=== PATIENT | female | born 1970 | race Hispanic/Latino ===

== ENCOUNTER 2018-12-09 16:44 | Inpatient (IN) | payer BC ==
[2018-12-09 17:07] LABS: Basophils # (Auto) 0.1 K/mm3 (0.0-0.1); Basophils % (Auto) 0.6 % (0.0-1.8); Eosinophils # (Auto) 0.1 K/mm3 (0.0-0.4); Eosinophils % (Auto) 1.5 % (0.0-4.3); Hematocrit 45.9 % (30.3-42.9); Hemoglobin 15.9 gm/dl (10.1-14.3); Lymphocytes # (Auto) 2.8 K/mm3 (1.2-5.4); Lymphocytes % (Auto) 33.6 % (13.4-35.0); Mean Corpuscular HGB Conc 35 % (30-34); Mean Corpuscular Volume 87 fl (79-97); Monocytes # (Auto) 0.6 K/mm3 (0.0-0.8); Monocytes % (Auto) 7.6 % (0.0-7.3); Platelet Count 244 K/mm3 (140-440); Red Cell Distribution Width 13.1 % (13.2-15.2)
--- NOTE | 2018-12-09 17:13 | Cat Scan Report ---
FINAL REPORT PROCEDURE: CT head without contrast. TECHNIQUE: Computerized tomography of the head was performed without contrast material. HISTORY: NEURO DEFICIT COMPARISON: No prior studies are available for comparison. FINDINGS: The ventricles are normal in size. The reid matter and white matter appear normal. There are no mass lesions. There is no intracranial hemorrhage. The calvarium appears intact. The mastoid air cells and visualized paranasal sinuses are well aerated. IMPRESSION: Normal study.
[2018-12-09 17:19] LABS: BUN/Creatinine Ratio 17; Blood Urea Nitrogen 10 mg/dL (7-17); Calcium 9.3 mg/dL (8.4-10.2); Hemolysis Index 11
[2018-12-09 17:20] LABS: INR 0.94 (0.87-1.13)
--- NOTE | 2018-12-09 17:30 | Emergency Department Report ---
ED Neuro Deficit HPI - General Chief Complaint: Weakness Stated Complaint: RIDE SIDE NUMB Time Seen by Provider: 12/09/18 17:22 Source: patient Mode of arrival: Ambulatory Limitations: No Limitations - History of Present Illness Initial Comments: Patient is a 48-year-old female that presents emergency room with complaints of right-sided numbness. Patient states is mostly in her right arm. Patient states his symptoms started one hour ago. Last known well time one hour ago. Patient states history of uncontrolled diabetes and TIA. She also states she is not compliant with all of her medications or insulin. Patient denies chest pain shortness of breath. Patient denies inability to move her limbs. Patient denies changes in her face. Patient denies dizziness. Patient denies headache. Patient denies blurry vision. Patient states she also has medications for high blood pressure. -: Sudden Location: right arm History of same: No Place: home Severity: mild, moderate Quality: numb Improves With: none Worsens With: none On Anticoagulants: No Context: sudden onset Associated Symptoms: denies other symptoms. denies: confusion, chest pain, cough, diaphoresis, fever/chills, headaches, loss of appetite, malise, nausea/vomiting, vertigo, seizures, shortness of breath, syncope, weakness Treatments Prior to Arrival: none - Related Data Home Medications: Home Medications Medication Instructions Recorded Confirmed Last Taken Detemir (Nf) [Levemir (Nf)] 55 units SUB-Q QHS 12/09/18 12/09/18 Unknown metFORMIN [Glucophage] 850 mg PO BID 12/09/18 12/09/18 Unknown Allergies/Adverse Reactions: Allergies Allergy/AdvReac Type Severity Reaction Status Date / Time naproxen [From Naprosyn] Allergy Swelling Verified 12/09/18 16:45 ED Review of Systems ROS: Stated complaint: RIDE SIDE NUMB Other details as noted in HPI Constitutional: denies: chills, fever Eyes: denies: eye pain, eye discharge, vision change ENT: denies: ear pain, throat pain Respiratory: denies: cough, shortness of breath, wheezing Cardiovascular: denies: chest pain, palpitations Endocrine: no symptoms reported Gastrointestinal: denies: abdominal pain, nausea, diarrhea Genitourinary: denies: urgency, dysuria, discharge Musculoskeletal: denies: back pain, joint swelling, arthralgia Skin: denies: rash, lesions Neurological: numbness. denies: headache, weakness Psychiatric: denies: anxiety, depression Hematological/Lymphatic: denies: easy bleeding, easy bruising ED Past Medical Hx - Past Medical History Previous Medical History?: Yes Hx Hypertension: Yes Hx Diabetes: Yes Additional medical history: TIA - Surgical History Past Surgical History?: No - Family History Family history: no significant - Social History Smoking Status: Never Smoker Substance Use Type: Alcohol - Medications Home Medications: Home Medications Medication Instructions Recorded Confirmed Last Taken Type Detemir (Nf) [Levemir (Nf)] 55 units SUB-Q QHS 12/09/18 12/09/18 Unknown History metFORMIN [Glucophage] 850 mg PO BID 12/09/18 12/09/18 Unknown History ED Neuro Physical Exam - General Limitations: No Limitations General appearance: alert, in no apparent distress Suspected Stroke: No - Head Head exam: Present: atraumatic, normocephalic - Eye Eye exam: Present: normal appearance, PERRL Pupils: Present: normal accommodation - ENT ENT exam: Present: mucous membranes moist - Neck Neck exam: Present: normal inspection - Respiratory Respiratory exam: Present: normal lung sounds bilaterally. Absent: respiratory distress - Cardiovascular Cardiovascular Exam: Present: regular rate, normal rhythm. Absent: systolic murmur, diastolic murmur, rubs, gallop - GI/Abdominal GI/Abdominal exam: Present: soft, normal bowel sounds - Extremities Exam Extremities exam: Present: normal inspection - Back Exam Back exam: Present: normal inspection - Neurological Exam Neurological exam: Present: alert, oriented X3 - NIHSS Assessment Interval: Baseline 1a. Level of Consciousness: alert/keenly responsive 1b. LOC Questions: answers both correctly 1c. LOC Commands: performs tasks correctly 2. Best Gaze: normal 3. Visual: no visual loss 4. Facial Palsy: normal symmetrical movement 5b. Motor Arm Right: no drift 5a. Motor Arm Left: no drift 6a. Motor Leg Left: no drift 6b. Motor Leg Right: no drift 7. Limb Ataxia: absent 8. Sensory: mild/moderate sensory loss 9. Best Language: no aphasia 10. Dysarthria: normal 11. Extinction/Inattention: no abnormality Total Score: 1 Stroke Severity: Minor Stroke - Psychiatric Psychiatric exam: Present: normal affect, normal mood - Skin Skin exam: Present: warm, dry, intact, normal color. Absent: rash ED Course Vital Signs 12/09/18 12/09/18 12/09/18 16:49 17:08 17:15 Temperature 99.2 F Pulse Rate 117 H 113 H 104 H Respiratory 18 16 19 Rate Blood Pressure 185/101 O2 Sat by Pulse 98 99 Oximetry 12/09/18 12/09/18 12/09/18 17:31 17:45 18:00 Temperature Pulse Rate 105 H 100 H 103 H Respiratory 24 21 17 Rate Blood Pressure 166/91 173/84 O2 Sat by Pulse 99 99 99 Oximetry 12/09/18 12/09/18 12/09/18 18:15 18:31 18:43 Temperature Pulse Rate 84 Respiratory Rate Blood Pressure 173/84 173/84 162/85 O2 Sat by Pulse 98 98 Oximetry 12/09/18 12/09/18 12/09/18 18:45 19:01 19:15 Temperature Pulse Rate 84 82 82 Respiratory 12 14 13 Rate Blood Pressure 162/82 173/84 173/84 O2 Sat by Pulse 98 99 98 Oximetry 12/09/18 12/09/18 12/09/18 19:31 21:01 21:53 Temperature 97.7 F Pulse Rate 85 Respiratory 22 14 Rate Blood Pressure 173/84 149/76 131/76 O2 Sat by Pulse 98 100 Oximetry 12/09/18 22:00 Temperature Pulse Rate 84 Respiratory Rate Blood Pressure O2 Sat by Pulse Oximetry - Reevaluation(s) Reevaluation #1: Discussed all results with patient. Discussed plan of care and admission with patient. Patient to be admitted to the hospitalist service. Patient agrees with plan of care. 12/09/18 17:51 - Consultations Consultation #1: Discussed case with neurologist. Neurologist to see patient. 12/09/18 17:28 Dr gil saw patient. Dr. Muller's findings consistent with mild but does not recommend TPA. Patient does not want TPA. Dr. Muller recommends admission for further stroke evaluation and management of diabetes. 12/09/18 17:42 Consultation #2: Hospitalist consulted for admission. Hospitalist to admit patient and assume care of patient. Bridge orders were placed. 12/09/18 18:03 - Lab Data Result diagrams: 12/09/18 16:56 12/09/18 16:56 Lab Results 12/09/18 12/09/18 12/09/18 Range/Units 16:52 16:56 16:56 WBC 8.3 (4.5-11.0) K/mm3 RBC 5.30 H (3.65-5.03) M/mm3 Hgb 15.9 H (10.1-14.3) gm/dl Hct 45.9 H (30.3-42.9) % MCV 87 (79-97) fl MCH 30 (28-32) pg MCHC 35 H (30-34) % RDW 13.1 L (13.2-15.2) % Plt Count 244 (140-440) K/mm3 Lymph % (Auto) 33.6 (13.4-35.0) % [place] % (Auto) 7.6 H (0.0-7.3) % Eos % (Auto) 1.5 (0.0-4.3) % Baso % (Auto) 0.6 (0.0-1.8) % Lymph # 2.8 (1.2-5.4) K/mm3 [place] # 0.6 (0.0-0.8) K/mm3 Eos # 0.1 (0.0-0.4) K/mm3 Baso # 0.1 (0.0-0.1) K/mm3 Seg Neutrophils % 56.7 (40.0-70.0) % Seg Neutrophils # 4.7 (1.8-7.7) K/mm3 PT 13.0 (12.2-14.9) Sec. INR 0.94 (0.87-1.13) APTT 24.0 L (24.2-36.6) Sec. Thrombin Time (15.1-19.6) Sec. VBG pH (7.320-7.420) Sodium (137-145) mmol/L Potassium (3.6-5.0) mmol/L Chloride (98-107) mmol/L Carbon Dioxide (22-30) mmol/L Anion Gap mmol/L BUN (7-17) mg/dL Creatinine (0.7-1.2) mg/dL Estimated GFR ml/min BUN/Creatinine Ratio % Glucose (65-100) mg/dL POC Glucose 456 H (70-105) Calcium (8.4-10.2) mg/dL Troponin T (0.00-0.029) ng/mL 12/09/18 12/09/18 12/09/18 Range/Units 16:56 16:56 16:56 WBC (4.5-11.0) K/mm3 RBC (3.65-5.03) M/mm3 Hgb (10.1-14.3) gm/dl Hct (30.3-42.9) % MCV (79-97) fl MCH (28-32) pg MCHC (30-34) % RDW (13.2-15.2) % Plt Count (140-440) K/mm3 Lymph % (Auto) (13.4-35.0) % [place] % (Auto) (0.0-7.3) % Eos % (Auto) (0.0-4.3) % Baso % (Auto) (0.0-1.8) % Lymph # (1.2-5.4) K/mm3 [place] # (0.0-0.8) K/mm3 Eos # (0.0-0.4) K/mm3 Baso # (0.0-0.1) K/mm3 Seg Neutrophils % (40.0-70.0) % Seg Neutrophils # (1.8-7.7) K/mm3 PT (12.2-14.9) Sec. INR (0.87-1.13) APTT (24.2-36.6) Sec. Thrombin Time 17.6 (15.1-19.6) Sec. VBG pH 7.395 (7.320-7.420) Sodium 135 L (137-145) mmol/L Potassium 4.1 (3.6-5.0) mmol/L Chloride 97.6 L (98-107) mmol/L Carbon Dioxide 21 L (22-30) mmol/L Anion Gap 21 mmol/L BUN 10 (7-17) mg/dL Creatinine 0.6 L (0.7-1.2) mg/dL Estimated GFR > 60 ml/min BUN/Creatinine Ratio 17 % Glucose 482 H (65-100) mg/dL POC Glucose (70-105) Calcium 9.3 (8.4-10.2) mg/dL Troponin T < 0.010 (0.00-0.029) ng/mL - EKG Data -: EKG Interpreted by Tn EKG shows normal: sinus rhythm, axis, intervals, QRS complexes, ST-T waves Rate: tachycardia - Radiology Data Radiology results: report reviewed Radiologist called with negative CT of the head - Medical Decision Making Patient is a 48-year-old female that presents to emergency room with right sided numbness which includes right base right arm right leg however the right arm w orse. Patient's NIH is 1. Patient's labs unremarkable except for hyperglycemia and hypoglycemia sequela. EKG is negative. Patient spell pressure elevated. Patient given Lopressor 2.5. Patient also given a saline bolus. Patient stated she is noncompliant with her diabetes medication. Neurologist saw patient and states that this is a mild CVA. Neurologist recommends admission for hyperglyce dede and diabetes management as well as further stroke workup. - Differential Diagnosis CVA. Neuropathy. Electrolyte imbalance. Hyperglycemia. - Core Measures AMI Core Measures Followed: Yes Critical Care Time: Yes Critical care attestation.: If time is entered above; I have spent that time in minutes in the direct care of this critically ill patient, excluding procedure time. Critical Care Time: 45 minutes ED Disposition Clinical Impression: Hyperglycemia, Right arm numbness Diabetes Qualifiers: Diabetes mellitus type: type 2 Diabetes mellitus moth exterminator insulin use: with fpc use Diabetes mellitus complication status: with unspecified complications Qualified Code(s): E11.8 - Type 2 diabetes mellitus with unspecified complications CVA (cerebral vascular accident) Qualifiers: CVA mechanism: unspecified Qualified Code(s): I63.9 - Cerebral infarction, unspecified Disposition: DC-09 OP ADMIT IP TO THIS HOSP Is pt being admited?: Yes Does the pt Need Aspirin: No Condition: Critical Time of Disposition: 17:58
[2018-12-09] MEDS ORDERED: NACL 0.9% 1000 ML 1,000 ML IV ONE (17:56)
[2018-12-09] MEDS ORDERED: LOPRESSOR IV ONE (17:57)
[2018-12-09] MEDS ORDERED: ZOFRAN IV PRN (20:43)
[2018-12-09] MEDS ORDERED: SODIUM CHLORIDE FLUSH SYRINGE 10 ML IV PRN ×2 (20:43→20:46)
[2018-12-09] MEDS ORDERED: TYLENOL PO PRN (20:43)
[2018-12-09] MEDS ORDERED: REGLAN PO PRN (20:46)
[2018-12-09] MEDS ORDERED: MILK OF MAGNESIA PO PRN (20:46)
[2018-12-09] MEDS ORDERED: DULCOLAX PR PRN (20:46)
[2018-12-09] MEDS ORDERED: PHENERGAN PR PRN (20:46)
[2018-12-09 21:19] LABS: Bilirubin,Urine NEG (Negative); Blood,Urine NEG (Negative); Color,Urine Yellow (Yellow); Protein,Urine <15 mg/dL mg/dL (Negative); Urobilinogen,Urine < 2.0 mg/dL (<2.0)
[2018-12-09] MEDS ORDERED: HumuLIN R SUB-Q ONE (21:35)
[2018-12-09] MEDS ORDERED: HumuLIN R ONE (21:45)
--- NOTE | 2018-12-09 22:29 | History and Physical Report ---
<BARON THAKKAR - Last Filed: 12/10/18 00:38> History of Present Illness Date of examination: 12/09/18 Date of admission: 12/09/18 18:44 Chief complaint: Numbness and weakness on the right side History of present illness: Pt is a 48-year-old female WF with PMHx of TIA, obesity, uncontrolled DM type 2, breast ca, HTN who presents to the ER with complaints of right-sided numbness. Patient states that the symptoms started one hour prior to arrival to the ER and gradually improved when she got to the ER. Pt admits to prior prior episode of TIA, she was seen by neurologist who suggested hospital admission with MRI to follow up her neuro symptoms. Pt's Blood glucose was elevated in the ER "482", pt admits not to take her insulin, even though she checked her blood glucose and it's elevated, she does't take insulin because "insulin is too expensive". Patient denies LOC, denies visual changes, denies extremities weakness, denies dizziness, denies headache, denies chest pain, denies SOB. Pt is admitted, MRI of the brain is ordered, to follow up CT scan. Past History Past Medical History: cancer Past Surgical History: hysterectomy Social history: lives with family Family history: no significant family history Medications and Allergies Allergies Allergy/AdvReac Type Severity Reaction Status Date / Time naproxen [From Naprosyn] Allergy Swelling Verified 12/09/18 16:45 Home Medications Medication Instructions Recorded Confirmed Last Taken Type Detemir (Nf) [Levemir (Nf)] 55 units SUB-Q QHS 12/09/18 12/09/18 Unknown History metFORMIN [Glucophage] 850 mg PO BID 12/09/18 12/09/18 Unknown History Active Meds: Active Medications Acetaminophen (Tylenol) 650 mg PO Q4H PRN PRN Reason: Pain MILD(1-3)/Fever >100.5/[place] Acetaminophen (Tylenol) 650 mg PO Q4H PRN PRN Reason: Pain, Mild (1-3) Bisacodyl (Dulcolax) 10 mg MT QDAY PRN PRN Reason: Constipation Insulin Glargine (Lantus) 25 units SUB-Q QHS JOHN Insulin Human Regular (Humulin R) 0 units SUB-Q ACHS JOHN; Protocol Magnesium Hydroxide (Milk Of Magnesia) 30 ml PO Q4H PRN PRN Reason: Constipation Metformin HCl (Glucophage) 850 mg PO BID JOHN Metoclopramide HCl (Reglan) 10 mg PO Q6H PRN PRN Reason: Nausea And Vomiting Ondansetron HCl (Zofran) 4 mg IV Q8H PRN PRN Reason: Nausea And Vomiting Promethazine HCl (Phenergan) 25 mg MT Q6H PRN PRN Reason: Nausea And Vomiting Sodium Chloride (Sodium Chloride Flush Syringe 10 Ml) 10 ml IV BID JOHN Sodium Chloride (Sodium Chloride Flush Syringe 10 Ml) 10 ml IV PRN PRN PRN Reason: LINE FLUSH Sodium Chloride (Sodium Chloride Flush Syringe 10 Ml) 10 ml IV PRN PRN PRN Reason: LINE FLUSH Exam - Constitutional Vitals: Temp Pulse Resp BP Pulse Ox 97.7 F 85 14 131/76 100 12/09/18 21:53 12/09/18 21:53 12/09/18 21:01 12/09/18 21:53 12/09/18 21:53 - EENT Eyes: Present: PERRL ENT: hearing intact - Neck Neck: Present: supple - Respiratory Respiratory effort: normal Respiratory: negative: CTA - Cardiovascular Rhythm: regular - Extremities Extremities: no ischemia, No edema Peripheral Pulses: within normal limits - Abdominal General gastrointestinal: Present: soft, non-tender Female genitourinary: Present: deferred - Rectal Rectal Exam: deferred - Integumentary Integumentary: Present: warm, dry - Musculoskeletal Musculoskeletal: generalized weakness - Psychiatric Psychiatric: cooperative - Neurologic Neurologic: moves all extremities Results - Labs CBC & Chem 7: 12/09/18 16:56 12/09/18 16:56 Labs: Laboratory Last Values WBC 8.3 K/mm3 (4.5-11.0) 12/09/18 16:56 RBC 5.30 M/mm3 (3.65-5.03) H 12/09/18 16:56 Hgb 15.9 gm/dl (10.1-14.3) H 12/09/18 16:56 Hct 45.9 % (30.3-42.9) H 12/09/18 16:56 MCV 87 fl (79-97) 12/09/18 16:56 MCH 30 pg (28-32) 12/09/18 16:56 MCHC 35 % (30-34) H 12/09/18 16:56 RDW 13.1 % (13.2-15.2) L 12/09/18 16:56 Plt Count 244 K/mm3 (140-440) 12/09/18 16:56 Lymph % (Auto) 33.6 % (13.4-35.0) 12/09/18 16:56 [place] % (Auto) 7.6 % (0.0-7.3) H 12/09/18 16:56 Eos % (Auto) 1.5 % (0.0-4.3) 12/09/18 16:56 Baso % (Auto) 0.6 % (0.0-1.8) 12/09/18 16:56 Lymph # 2.8 K/mm3 (1.2-5.4) 12/09/18 16:56 [place] # 0.6 K/mm3 (0.0-0.8) 12/09/18 16:56 Eos # 0.1 K/mm3 (0.0-0.4) 12/09/18 16:56 Baso # 0.1 K/mm3 (0.0-0.1) 12/09/18 16:56 Seg Neutrophils % 56.7 % (40.0-70.0) 12/09/18 16:56 Seg Neutrophils # 4.7 K/mm3 (1.8-7.7) 12/09/18 16:56 PT 13.0 Sec. (12.2-14.9) 12/09/18 16:56 INR 0.94 (0.87-1.13) 12/09/18 16:56 APTT 24.0 Sec. (24.2-36.6) L 12/09/18 16:56 Thrombin Time 17.6 Sec. (15.1-19.6) 12/09/18 16:56 VBG pH 7.395 (7.320-7.420) 12/09/18 16:56 Sodium 135 mmol/L (137-145) L 12/09/18 16:56 Potassium 4.1 mmol/L (3.6-5.0) 12/09/18 16:56 Chloride 97.6 mmol/L (98-107) L 12/09/18 16:56 Carbon Dioxide 21 mmol/L (22-30) L 12/09/18 16:56 Anion Gap 21 mmol/L 12/09/18 16:56 BUN 10 mg/dL (7-17) 12/09/18 16:56 Creatinine 0.6 mg/dL (0.7-1.2) L 12/09/18 16:56 Estimated GFR > 60 ml/min 12/09/18 16:56 BUN/Creatinine Ratio 17 % 12/09/18 16:56 Glucose 482 mg/dL (65-100) H 12/09/18 16:56 POC Glucose 356 (70-105) H 12/09/18 20:56 Calcium 9.3 mg/dL (8.4-10.2) 12/09/18 16:56 Troponin T < 0.010 ng/mL (0.00-0.029) 12/09/18 16:56 Urine Color Yellow (Yellow) 12/09/18 21:00 Urine Turbidity Clear (Clear) 12/09/18 21:00 Urine pH 5.0 (5.0-7.0) 12/09/18 21:00 Ur Specific [place] 1.033 (1.003-1.030) H 12/09/18 21:00 Urine Protein <15 mg/dl mg/dL (Negative) 12/09/18 21:00 Urine Glucose (UA) >=500 mg/dL (Negative) 12/09/18 21:00 Urine Ketones Neg mg/dL (Negative) 12/09/18 21:00 Urine Blood Neg (Negative) 12/09/18 21:00 Urine Nitrite Neg (Negative) 12/09/18 21:00 Urine Bilirubin Neg (Negative) 12/09/18 21:00 Urine Urobilinogen < 2.0 mg/dL (<2.0) 12/09/18 21:00 Ur Leukocyte Esterase Neg (Negative) 12/09/18 21:00 Urine WBC (Auto) 2.0 /HPF (0.0-6.0) 12/09/18 21:00 Urine RBC (Auto) 2.0 /HPF (0.0-6.0) 12/09/18 21:00 U Epithel Cells (Auto) 1.0 /HPF (0-13.0) 12/09/18 21:00 Assessment and Plan Assessment and plan: 1. TIA r/o CVA 2. Uncontrolled DM type 2 3. h/o Breast ca 4. HTN 5. Obesity Plan: [facility] brain to r/o CVA MRA of the brain and neck Neuro check q4hr Monitor VS Bedside swallow study Accu check ACHS with insulin per sliding scale DVT prophylaxis with sequential device Resume home meds Further plan per hospital course Plan d/w pt and family in room, voiced understanding Pt's condition and plan of care d/w Dr Dailey Advance Directives: Yes VTE prophylaxis?: Chemical Contraindication Mechanical VTE Prophylaxis: Contraindicated Plan of care discussed with patient/family: Yes <ALENA DAILEY - Last Filed: 12/10/18 01:27> History of Present Illness Date of admission: 12/09/18 18:44 Medications and Allergies Active Meds: Active Medications Acetaminophen (Tylenol) 650 mg PO Q4H PRN PRN Reason: Pain, Mild (1-3) Atorvastatin Calcium (Lipitor) 20 mg PO QHS [facility] Bisacodyl (Dulcolax) 10 mg MT QDAY PRN PRN Reason: Constipation Clopidogrel Bisulfate (Plavix) 75 mg PO QDAY [facility] Insulin Glargine (Lantus) 25 units SUB-Q QHS [facility] Insulin Human Regular (Humulin R) 0 units SUB-Q ACHS [facility]; Protocol Last Admin: 12/10/18 00:44 Dose: 10 units Documented by: Magnesium Hydroxide (Milk Of Magnesia) 30 ml PO Q4H PRN PRN Reason: Constipation Metformin HCl (Glucophage) 850 mg PO BIDDIAB [facility] Metoclopramide HCl (Reglan) 10 mg PO Q6H PRN PRN Reason: Nausea And Vomiting Ondansetron HCl (Zofran) 4 mg IV Q8H PRN PRN Reason: Nausea And Vomiting Sodium Chloride (Sodium Chloride Flush Syringe 10 Ml) 10 ml IV BID [facility] Last Admin: 12/09/18 23:05 Dose: 10 ml Documented by: Sodium Chloride (Sodium Chloride Flush Syringe 10 Ml) 10 ml IV PRN PRN PRN Reason: LINE FLUSH Sodium Chloride (Sodium Chloride Flush Syringe 10 Ml) 10 ml IV PRN PRN PRN Reason: LINE FLUSH Exam - Constitutional Vitals: Temp Pulse Resp BP Pulse Ox 97.7 F 84 17 152/73 97 12/09/18 23:45 12/09/18 23:45 12/09/18 23:45 12/09/18 23:45 12/09/18 23:45 Results - Labs CBC & Chem 7: 12/09/18 16:56 12/09/18 16:56 Labs: Laboratory Last Values WBC 8.3 K/mm3 (4.5-11.0) 12/09/18 16:56 RBC 5.30 M/mm3 (3.65-5.03) H 12/09/18 16:56 Hgb 15.9 gm/dl (10.1-14.3) H 12/09/18 16:56 Hct 45.9 % (30.3-42.9) H 12/09/18 16:56 MCV 87 fl (79-97) 12/09/18 16:56 MCH 30 pg (28-32) 12/09/18 16:56 MCHC 35 % (30-34) H 12/09/18 16:56 RDW 13.1 % (13.2-15.2) L 12/09/18 16:56 Plt Count 244 K/mm3 (140-440) 12/09/18 16:56 Lymph % (Auto) 33.6 % (13.4-35.0) 12/09/18 16:56 [place] % (Auto) 7.6 % (0.0-7.3) H 12/09/18 16:56 Eos % (Auto) 1.5 % (0.0-4.3) 12/09/18 16:56 Baso % (Auto) 0.6 % (0.0-1.8) 12/09/18 16:56 Lymph # 2.8 K/mm3 (1.2-5.4) 12/09/18 16:56 [place] # 0.6 K/mm3 (0.0-0.8) 12/09/18 16:56 Eos # 0.1 K/mm3 (0.0-0.4) 12/09/18 16:56 Baso # 0.1 K/mm3 (0.0-0.1) 12/09/18 16:56 Seg Neutrophils % 56.7 % (40.0-70.0) 12/09/18 16:56 Seg Neutrophils # 4.7 K/mm3 (1.8-7.7) 12/09/18 16:56 PT 13.0 Sec. (12.2-14.9) 12/09/18 16:56 INR 0.94 (0.87-1.13) 12/09/18 16:56 APTT 24.0 Sec. (24.2-36.6) L 12/09/18 16:56 Thrombin Time 17.6 Sec. (15.1-19.6) 12/09/18 16:56 VBG pH 7.395 (7.320-7.420) 12/09/18 16:56 Sodium 135 mmol/L (137-145) L 12/09/18 16:56 Potassium 4.1 mmol/L (3.6-5.0) 12/09/18 16:56 Chloride 97.6 mmol/L (98-107) L 12/09/18 16:56 Carbon Dioxide 21 mmol/L (22-30) L 12/09/18 16:56 Anion Gap 21 mmol/L 12/09/18 16:56 BUN 10 mg/dL (7-17) 12/09/18 16:56 Creatinine 0.6 mg/dL (0.7-1.2) L 12/09/18 16:56 Estimated GFR > 60 ml/min 12/09/18 16:56 BUN/Creatinine Ratio 17 % 12/09/18 16:56 Glucose 482 mg/dL (65-100) H 12/09/18 16:56 POC Glucose 367 (70-105) H 12/09/18 23:50 Calcium 9.3 mg/dL (8.4-10.2) 12/09/18 16:56 Troponin T < 0.010 ng/mL (0.00-0.029) 12/09/18 16:56 Urine Color Yellow (Yellow) 12/09/18 21:00 Urine Turbidity Clear (Clear) 12/09/18 21:00 Urine pH 5.0 (5.0-7.0) 12/09/18 21:00 Ur Specific [place] 1.033 (1.003-1.030) H 12/09/18 21:00 Urine Protein <15 mg/dl mg/dL (Negative) 12/09/18 21:00 Urine Glucose (UA) >=500 mg/dL (Negative) 12/09/18 21:00 Urine Ketones Neg mg/dL (Negative) 12/09/18 21:00 Urine Blood Neg (Negative) 12/09/18 21:00 Urine Nitrite Neg (Negative) 12/09/18 21:00 Urine Bilirubin Neg (Negative) 12/09/18 21:00 Urine Urobilinogen < 2.0 mg/dL (<2.0) 12/09/18 21:00 Ur Leukocyte Esterase Neg (Negative) 12/09/18 21:00 Urine WBC (Auto) 2.0 /HPF (0.0-6.0) 12/09/18 21:00 Urine RBC (Auto) 2.0 /HPF (0.0-6.0) 12/09/18 21:00 U Epithel Cells (Auto) 1.0 /HPF (0-13.0) 12/09/18 21:00 Assessment and Plan Assessment and plan: This is a 48-year-old woman with a history of hypertension, uncontrolled diabetes, TIA, breast cancer, noncompliance discussed emergency room complaining of right sided numbness, also her right hand feels weak. Her symptoms have improved and they are now back to baseline. The patient has not taken aspirin in over one year, she also tried to stretch her dinner insulin so it can last longer. Physical exam is benign. Agree with plan as stated above, in addition check echo, consult neurology, start plavix, statin Review of systems Constitutional: no weight loss, chills, fever Ears, eyes, nose, mouth and throat: no nasal congestion, no nasal discharge, no sinus pressure, no vision change, no red eye. Neck: No neck pain or rigidity. Cardiovascular: no palpitations, chest pain Respiratory: no cough, shortness of breath Gastrointestinal: no hematochezia, abdominal pain Genitourinary : no frequency , no hematuria Musculoskeletal: no joint swelling or muscle ache Integumentary: no rash, no pruritis Neurological: no pno focal weakness Endocrine: no cold or heat intolerance, no polyuria or polydipsia Hematologic/Lymphatic: no easy bruising, no easy bleeding, no gland swelling Allergic/Immunologic: no urticaria, no angioedema.
[2018-12-09] MEDS: SODIUM CHLORIDE FLUSH SYRINGE 10 ML IV SCH (23:05)
[2018-12-10] MEDS: HumuLIN R SUB-Q SCH ×5 (00:44→22:27)
[2018-12-10 05:46] LABS: Chol/HDL Ratio 5.86 %
[2018-12-10] MEDS: TYLENOL PO PRN ×2 (05:46→20:36)
--- NOTE | 2018-12-10 10:49 | Magnetic Resonance Report ---
MRI BRAIN WITHOUT CONTRAST: 12/10/18 CLINICAL: Stroke. TECHNIQUE: Axial diffusion, T1, T2, gradient echo T2*, coronal and axial FLAIR and sagittal T1 sequences on a 1.5 Isabel magnet. FINDINGS: The ventricles and sulci are normal for age. A single tiny focus of restricted diffusion in the left thalamus. No other restricted diffusion. Mild bilateral multifocal subcortical white matter hyperintensities on FLAIR and T2. A small chronic lacunar infarct of the left midbrain. No other abnormal signal. No mass or mass effect. No hemorrhage, edema or extra-axial collection. No cerebral microbleeds on the gradient echo sequence. Normal pituitary and optic chiasm. The brainstem and cerebellum are normal. Intact vascular flow voids. Normal sinuses. The orbits, and soft tissues are normal. Normal calvarium and skull base. IMPRESSION: 1. A single tiny nonhemorrhagic acute/subacute infarct of the left thalamus. 2. A chronic small lacunar infarct of the left midbrain. 3. Mild bilateral chronic white matter microangiopathy.
[2018-12-10] MEDS: GLUCOPHAGE PO SCH ×2 (11:49→17:28)
[2018-12-10] MEDS: PLAVIX PO SCH (11:49)
--- NOTE | 2018-12-10 11:51 | Progress Note ---
Assessment and Plan Acute/subacute left thalamic CVA Uncontrolled DM type 2, a1c 10.9 h/o Breast ca HTN, stable Obesity - Pt is admitted to [facility] Neuro check q4hr , Monitor VS resumed diet after Bedside swallow study Accu check ACHS with insulin per sliding scale DVT prophylaxis with sequential device Resumed home meds, started on aspirin and plavix consulted neurology, follow 2d echo Brief History: This is a 48-year-old woman with a history of hypertension, uncontrolled diabetes, TIA, breast cancer, noncompliance presented to the emergency room complaining of right sided numbness, and her right hand feeling weak. The pa patricia has not taken aspirin in over one year, she also tried to stretch her dinner insulin so it can last longer. check echo, consulted neurology, started aspirin, plavix, statin Radiological data: MRI brain: 1. A single tiny nonhemorrhagic acute/subacute infarct of the left thalamus. 2. A chronic small lacunar infarct of the left midbrain. 3. Mild bilateral chronic white matter microangiopathy. Carotid doppler: < 50% stenosis b/l Hospitalist Physical exam: GENERAL: well-developed and well-nourished obese white female lying on bed appeared to be in no discomfort. HEENT: Normocephalic. Atraumatic. No conjunctival congestion or icterus. Patient has moist mucous membranes. NECK: Supple. Trachea midline. CHEST/LUNGS: Clear to auscultated bilaterally, breathing nonlabored. No wheezes crackles or rhonchi. HEART/CARDIOVASCULAR: Regular in rate and rhythm. S1 and S2 positive. ABDOMEN: Abdomen is soft, nontender. Patient has normal bowel sounds. SKIN: There is no rash. Warm and dry. NEURO: No focal motor deficit. Follows command. MUSCULOSKELETAL: No joint effusion or tenderness. EXTRIMITY: No edema, no cyanosis or clubbing. PSYCH: Cooperative. Subjective Date of service: 12/10/18 Interval history: Patient seen and examined. Medical records and medication list reviewed. No acute event overnight noted by the RN. Patient denies any chest pain or difficulty breathing. Patient is tolerating diet. Discussed plan of care at bedside with patient. Objective - Constitutional Vitals: Vital Signs - 12hr 12/10/18 12/10/18 12/10/18 04:42 06:00 07:29 Temperature 98.1 F 98.2 F Pulse Rate 76 76 78 Respiratory 17 16 Rate Blood Pressure 159/90 165/77 O2 Sat by Pulse 94 95 Oximetry - Labs CBC & Chem 7: 12/09/18 16:56 12/09/18 16:56 Labs: Abnormal lab results 12/09/18 12/09/18 12/09/18 Range/Units 16:52 16:56 16:56 RBC 5.30 H (3.65-5.03) M/mm3 Hgb 15.9 H (10.1-14.3) gm/dl Hct 45.9 H (30.3-42.9) % MCHC 35 H (30-34) % RDW 13.1 L (13.2-15.2) % [place] % (Auto) 7.6 H (0.0-7.3) % APTT 24.0 L (24.2-36.6) Sec. Sodium (137-145) mmol/L Chloride (98-107) mmol/L Carbon Dioxide (22-30) mmol/L Creatinine (0.7-1.2) mg/dL Glucose (65-100) mg/dL POC Glucose 456 H (70-105) Hemoglobin A1c (4-6) % Triglycerides (2-149) mg/dL Cholesterol (50-199) mg/dL LDL Cholesterol Direct (50-130) mg/dL HDL Cholesterol (40-59) mg/dL Ur Specific [place] (1.003-1.030) 12/09/18 12/09/18 12/09/18 Range/Units 16:56 20:56 21:00 RBC (3.65-5.03) M/mm3 Hgb (10.1-14.3) gm/dl Hct (30.3-42.9) % MCHC (30-34) % RDW (13.2-15.2) % [place] % (Auto) (0.0-7.3) % APTT (24.2-36.6) Sec. Sodium 135 L (137-145) mmol/L Chloride 97.6 L (98-107) mmol/L Carbon Dioxide 21 L (22-30) mmol/L Creatinine 0.6 L (0.7-1.2) mg/dL Glucose 482 H (65-100) mg/dL POC Glucose 356 H (70-105) Hemoglobin A1c (4-6) % Triglycerides (2-149) mg/dL Cholesterol (50-199) mg/dL LDL Cholesterol Direct (50-130) mg/dL HDL Cholesterol (40-59) mg/dL Ur Specific [place] 1.033 H (1.003-1.030) 12/09/18 12/09/18 12/10/18 Range/Units 22:58 23:50 04:48 RBC (3.65-5.03) M/mm3 Hgb (10.1-14.3) gm/dl Hct (30.3-42.9) % MCHC (30-34) % RDW (13.2-15.2) % [place] % (Auto) (0.0-7.3) % APTT (24.2-36.6) Sec. Sodium (137-145) mmol/L Chloride (98-107) mmol/L Carbon Dioxide (22-30) mmol/L Creatinine (0.7-1.2) mg/dL Glucose (65-100) mg/dL POC Glucose 367 H (70-105) Hemoglobin A1c 10.9 H (4-6) % Triglycerides 267 H (2-149) mg/dL Cholesterol 211 H (50-199) mg/dL LDL Cholesterol Direct 156 H (50-130) mg/dL HDL Cholesterol 36 L (40-59) mg/dL Ur Specific [place] (1.003-1.030) 12/10/18 Range/Units 06:31 RBC (3.65-5.03) M/mm3 Hgb (10.1-14.3) gm/dl Hct (30.3-42.9) % MCHC (30-34) % RDW (13.2-15.2) % [place] % (Auto) (0.0-7.3) % APTT (24.2-36.6) Sec. Sodium (137-145) mmol/L Chloride (98-107) mmol/L Carbon Dioxide (22-30) mmol/L Creatinine (0.7-1.2) mg/dL Glucose (65-100) mg/dL POC Glucose 195 H (70-105) Hemoglobin A1c (4-6) % Triglycerides (2-149) mg/dL Cholesterol (50-199) mg/dL LDL Cholesterol Direct (50-130) mg/dL HDL Cholesterol (40-59) mg/dL Ur Specific [place] (1.003-1.030)
[2018-12-10] MEDS: SODIUM CHLORIDE FLUSH SYRINGE 10 ML IV SCH ×2 (11:56→22:33)
[2018-12-10] MEDS ORDERED: AFLURIA QUAD 2018-2019 SYRINGE IM ONE (12:00)
--- NOTE | 2018-12-10 12:46 | Vascular Lab Report ---
FINAL REPORT EXAM: VL CAROTID DUPLEX BILAT HISTORY: tia , diabetes, hypertension TECHNIQUE: Ultrasound duplex arterial examination of the right neck vasculature Ultrasound duplex arterial examination of the left neck vasculature Degree of carotid stenosis calculated by indirect methods via the peak systolic velocities of the ICA and CCA and reference with the society of Radiologist and Ultrasound consensus conference radiology 2003. PRIORS: None. FINDINGS: Echogenic slight plaque is present without evidence of ulceration in the carotid artery system bilate rally. Peak systolic CCA and ICA velocities are within normal limits bilaterally. Corresponding estimated stenosis 0 to 49 %. No evidence of aneurysm or occlusion. ICA/CCA peak systolic ratios are within normal limits bilaterally: Right: 0.87 Left: 0.72 Flow is antegrade in both vertebral arteries. IMPRESSION: Bilateral carotid artery atherosclerotic change Less than 50 % ICA and CCA carotid stenosis by above-described criteria
--- NOTE | 2018-12-10 13:22 | Progress Note ---
Subjective Date of service: 12/10/18 Interval history: there is small ischemic infarct in the left thalamud that fits with sensory loss right face and teetn known risk factor of severe diabetes on insulin explained this to patient thenks neuro exam is normal at present Objective - Vital Sign Vital Signs - 12hr 12/10/18 12/10/18 12/10/18 04:42 06:00 07:29 Temperature 98.1 F 98.2 F Pulse Rate 76 76 78 Respiratory 17 16 Rate Blood Pressure 159/90 165/77 O2 Sat by Pulse 94 95 Oximetry 12/10/18 11:06 Temperature 98.4 F Pulse Rate 79 Respiratory 18 Rate Blood Pressure 159/93 O2 Sat by Pulse 97 Oximetry - Laboratory Findings CBC and BMP: 12/09/18 16:56 12/09/18 16:56 Abnormal Lab Findings: Abnormal Labs 12/09/18 12/09/18 12/09/18 16:52 16:56 16:56 RBC 5.30 H Hgb 15.9 H Hct 45.9 H MCHC 35 H RDW 13.1 L [place] % (Auto) 7.6 H APTT 24.0 L Sodium Chloride Carbon Dioxide Creatinine Glucose POC Glucose 456 H Hemoglobin A1c Triglycerides Cholesterol LDL Cholesterol Direct HDL Cholesterol Ur Specific [place] 12/09/18 12/09/18 12/09/18 16:56 20:56 21:00 RBC Hgb Hct MCHC RDW [place] % (Auto) APTT Sodium 135 L Chloride 97.6 L Carbon Dioxide 21 L Creatinine 0.6 L Glucose 482 H POC Glucose 356 H Hemoglobin A1c Triglycerides Cholesterol LDL Cholesterol Direct HDL Cholesterol Ur Specific [place] 1.033 H 12/09/18 12/09/18 12/10/18 22:58 23:50 04:48 RBC Hgb Hct MCHC RDW [place] % (Auto) APTT Sodium Chloride Carbon Dioxide Creatinine Glucose POC Glucose 367 H Hemoglobin A1c 10.9 H Triglycerides 267 H Cholesterol 211 H LDL Cholesterol Direct 156 H HDL Cholesterol 36 L Ur Specific [place] 12/10/18 12/10/18 06:31 11:08 RBC Hgb Hct MCHC RDW [place] % (Auto) APTT Sodium Chloride Carbon Dioxide Creatinine Glucose POC Glucose 195 H 236 H Hemoglobin A1c Triglycerides Cholesterol LDL Cholesterol Direct HDL Cholesterol Ur Specific [place]
[2018-12-10] MEDS ORDERED: DETEMIR SUB-Q SCH (22:00)
[2018-12-10] MEDS ORDERED: LANTUS SUB-Q SCH ×2 (22:00)
[2018-12-11] MEDS: GLUCOPHAGE PO SCH (10:04)
[2018-12-11] MEDS: PLAVIX PO SCH (10:04)
[2018-12-11] MEDS: HumuLIN R SUB-Q SCH ×2 (10:05→13:00)
[2018-12-11] MEDS: SODIUM CHLORIDE FLUSH SYRINGE 10 ML IV SCH (10:06)
[2018-12-11] MEDS: TYLENOL PO PRN (10:17)
[2018-12-11 11:44] VITALS: BP 166/96
--- NOTE | 2018-12-11 13:57 | Discharge Summary ---
Providers - Providers Date of Admission: 12/09/18 18:44 Date of discharge: 12/11/18 Attending physician: RONALDO GILLESPIE 12/09/18 20:46 Occupational Therapy Evaluate and Treat [CONS] Routine Comment: Reason For Exam: Neuro deficits Physical Therapy Evaluation and Treat [CONS] Routine Comment: Reason For Exam: Neuro deficits 12/10/18 11:05 Consult to Physician [CONS] Routine Comment: COMPLETED Consulting Provider: IDANIA PASCAL Physician Instructions: Reason For Exam: stroke Primary care physician: BURKE BARNETT Hospitalization Reason for admission: right arm weakness and numbness Condition: Stable Pertinent studies: MRI of brain Echocardiogram Carotid Doppler Hospital course: Brief History: This is a 48-year-old woman with a history of hypertension, uncontrolled diabetes, TIA, breast cancer, noncompliance with follow-ups and medications presented to the emergency room complaining of right sided numbness, and her right hand feeling weak. The patient has not taken aspirin in over one year, she also tried to stretch her dinner insulin so it can last longer. Radiological data: MRI brain: 1. A single tiny nonhemorrhagic acute/subacute infarct of the left thalamus. 2. A chronic small lacunar infarct of the left midbrain. 3. Mild bilateral chronic white matter microangiopathy. Carotid doppler: < 50% stenosis b/l Echocardiogram: EF > 55%, no diastolic dysfunction Small acute/subacute left thalamus infarct 2/2 small branch of right MCA Brief from neurology note reviewed Physical therapy note reviewed No need for skilled physical therapy Discussed with spring encaser She will be scheduled for outpatient PT OT Stressed the importance of good control of diabetes and hypertension and daily exercise Continue aspirin 325 mg and Lipitor 40 mg Follow-up with neurology in 2 weeks Poorly controlled type 2 diabetes: Again stressed the importance of monitoring her blood sugars and compliance with follow-up with primary care physician and adjustment of oral hypoglycemics Continue Lantus insulin Her A1c was 10.9 Metformin thousand milligrams twice a day Add glimepiride 2 mg daily Hypertension: Poorly controlled Stressed the importance of keeping the blood pressure in the normal range and co mpliance with follow-ups and medications I will adjust her blood pressure medications as the patient states that her blood pressure is poorly controlled and has been on the same medications for many years Rx for atenolol 25 mg, lisinopril 20 mg was provided Hyperlipidemia: Lipitor 40 mg daily Discussed with patient to follow up on her liver enzymes with her primary care physician Disposition: DC-01 TO HOME OR SELFCARE Time spent for discharge: 40 min Core Measure Documentation - Palliative Care Palliative Care/ Comfort Measures: Not Applicable - Core Measures Any of the following diagnoses?: stroke - Stroke Discharge Requirements Statin for LDL = or >70 mg/dl on DC: Yes Anticoag for atrial fib/atrial flutter: Not Applicable Antithrombotic for ischemic stroke: Yes Exam - Constitutional Vitals: Temp Pulse Resp BP Pulse Ox 98.5 F 93 H 18 166/96 97 12/11/18 08:09 12/11/18 11:42 12/11/18 08:09 12/11/18 11:42 12/11/18 11:42 General appearance: Present: no acute distress - EENT Eyes: Present: PERRL, EOM intact ENT: hearing intact, clear oral mucosa - Neck Neck: Present: supple, normal ROM. Absent: masses or JVD - Respiratory Respiratory effort: normal Respiratory: bilateral: CTA - Cardiovascular Rhythm: regular Heart Sounds: Present: S1 & S2 - Extremities Extremities: No edema - Abdominal General gastrointestinal: Present: soft, non-tender. Absent: hepatomegaly, splenomegaly Female genitourinary: Present: deferred - Rectal Rectal Exam: deferred - Integumentary Integumentary: Present: clear, warm - Musculoskeletal Musculoskeletal: right sided weakness (motor power in right lower extremity is 5 over 5 and right upper extremity is 4-1/2 over 5, no pronator drift) - Psychiatric Psychiatric: appropriate mood/affect - Neurologic Neurologic: moves all extremities Plan Activity: advance as tolerated Weight Bearing Status: Full Weight Bearing Diet: regular, low fat, low cholesterol, low salt, diabetic, low carbohydrate Additional Instructions: channel development manager to arrange for outpatient PT and OT Follow up with: BURKE BARNETT DO [Primary Care Provider] - 7 Days IDANIA PASCAL MD [Staff Physician] - 14 Days Prescriptions: Aspirin 325 mg PO DAILY #30 tablet Atenolol [Tenormin] 25 mg PO DAILY #30 tab AtorvaSTATin [Lipitor] 40 mg PO QHS #30 tablet Glimepiride [Amaryl] 2 mg PO QAM #30 tablet Lisinopril 20 mg PO DAILY #30 tablet metFORMIN [Glucophage] 1,000 mg PO BID #60 tablet
--- NOTE | 2018-12-11 14:10 | Progress Note ---
Subjective Date of service: 12/11/18 Interval history: patient seen and currently improved she may go home but will need lipid lowering agent plus use BP control as BP is elevated explained results of tests to patient and family Objective - Vital Sign Vital Signs - 12hr 12/11/18 12/11/18 12/11/18 04:56 08:09 10:00 Temperature 98.1 F 98.5 F Pulse Rate 77 87 Respiratory 18 18 Rate Blood Pressure 185/94 162/94 O2 Sat by Pulse 99 94 97 Oximetry 12/11/18 11:42 Temperature Pulse Rate 93 H Respiratory Rate Blood Pressure 166/96 O2 Sat by Pulse 97 Oximetry - Laboratory Findings CBC and BMP: 12/09/18 16:56 12/09/18 16:56 Abnormal Lab Findings: Abnormal Labs 12/09/18 12/09/18 12/09/18 16:52 16:56 16:56 RBC 5.30 H Hgb 15.9 H Hct 45.9 H MCHC 35 H RDW 13.1 L [place] % (Auto) 7.6 H APTT 24.0 L Sodium Chloride Carbon Dioxide Creatinine Glucose POC Glucose 456 H Hemoglobin A1c Triglycerides Cholesterol LDL Cholesterol Direct HDL Cholesterol Ur Specific [place] 12/09/18 12/09/18 12/09/18 16:56 20:56 21:00 RBC Hgb Hct MCHC RDW [place] % (Auto) APTT Sodium 135 L Chloride 97.6 L Carbon Dioxide 21 L Creatinine 0.6 L Glucose 482 H POC Glucose 356 H Hemoglobin A1c Triglycerides Cholesterol LDL Cholesterol Direct HDL Cholesterol Ur Specific [place] 1.033 H 12/09/18 12/09/18 12/10/18 22:58 23:50 04:48 RBC Hgb Hct MCHC RDW [place] % (Auto) APTT Sodium Chloride Carbon Dioxide Creatinine Glucose POC Glucose 367 H Hemoglobin A1c 10.9 H Triglycerides 267 H Cholesterol 211 H LDL Cholesterol Direct 156 H HDL Cholesterol 36 L Ur Specific [place] 12/10/18 12/10/18 12/10/18 06:31 11:08 15:45 RBC Hgb Hct MCHC RDW [place] % (Auto) APTT Sodium Chloride Carbon Dioxide Creatinine Glucose POC Glucose 195 H 236 H 234 H Hemoglobin A1c Triglycerides Cholesterol LDL Cholesterol Direct HDL Cholesterol Ur Specific [place] 12/10/18 12/11/18 12/11/18 22:17 09:57 11:46 RBC Hgb Hct MCHC RDW [place] % (Auto) APTT Sodium Chloride Carbon Dioxide Creatinine Glucose POC Glucose 261 H 310 H 274 H Hemoglobin A1c Triglycerides Cholesterol LDL Cholesterol Direct HDL Cholesterol Ur Specific [place] 12/11/18 12:55 RBC Hgb Hct MCHC RDW [place] % (Auto) APTT Sodium Chloride Carbon Dioxide Creatinine Glucose POC Glucose 245 H Hemoglobin A1c Triglycerides Cholesterol LDL Cholesterol Direct HDL Cholesterol Ur Specific [place]
--- NOTE | 2018-12-11 14:24 | History and Physical Report ---
HISTORY OF PRESENT ILLNESS: This is a 48-year-old white female that presents to [facility] because of episode of dizziness, right-sided sensory loss involving the face, the jaw, the cheek. She was slightly dizzy, not feeling like herself, came to the hospital thinking she has had a stroke. Of note is the fact that she is a type 2 diabetic, have been on insulin therapy, but for several months had not taken her insulin and was not monitoring her blood sugar. She is not had a prior history of stroke in the past. She has no prior history of heart attack, stroke, seizures, or any other neurological problems. ALLERGIES: NAPROSYN. SOCIAL HISTORY: She is , does not smoke, does not drink. PHYSICAL EXAMINATION: VITAL SIGNS: On my examination, her blood pressure is 185/94. NEUROLOGIC: Cranial nerves 2-12 are intact. Speech is clear. Affect is appropriate. She has a slight degree of sensory loss noted of the right lower face, but her speech is otherwise clear. No aphasia is present. No tremors. No drift is present. The patient's neck is supple. She does not have any asterixis. No seizure activity present. IMPRESSION: This patient has a stroke probably in the sensory thalamus given her history. I think that this is most likely hypertension is the cause. Her triglycerides are elevated. Her cholesterol is elevated. I also noticed that in the past she has not taken statins because apparently she had elevated LFTs. She has told me this and I would recommend she take some of the course of treatment, she should go back on her insulin because of blood sugars in the range of 230-280. The patient's neurological condition stable. Most recent seizure resolved. I have reviewed her echocardiogram, revealed carotid artery ultrasound, both of which were relatively unremarkable except for minimal degree of atherosclerosis. PLAN: Continue therapy as above. RECOMMENDATIONS: As above. JOB# [id number] MAXIMILIANO/NTS
== END 2018-12-11 15:27 | disposition home or self-care (01) | DRG 65 ==
LOC: ED 16:44 → 4A 18:44
PROVIDERS: ADMIT Internal Medicine; ATTEND Internal Medicine
DX: I63.9 Cerebral infarction, unspecified (principal); G81.91 Hemiplegia, unspecified affecting right dominant side; E66.9 Obesity, unspecified; E11.65 Type 2 diabetes mellitus with hyperglycemia; R29.701 NIHSS score 1; I10 Essential (primary) hypertension; Z90.710 Acquired absence of both cervix and uterus; Z86.73 Personal history of transient ischemic attack (TIA), and cerebral infarction without residual deficits; Z85.3 Personal history of malignant neoplasm of breast; Z88.8 Allergy status to other drugs, medicaments and biological substances; Z79.84 Long term (current) use of oral hypoglycemic drugs; Z68.28 Body mass index [BMI] 28.0-28.9, adult
CPT/HCPCS: 36415; 70450; 70551; 80048; 80061; 81001; 82805; 82962; 83036; 84484; 85025; 85610; 85670; 85730; 90686; 93005; 93010; 93306; 93880; G0378; A9270-GY; J1815; J7030